=== PATIENT | male | born 1980 | race Caucasian/White ===

== ENCOUNTER → 2025-02-14 14:35 | Outpatient (REF) | payer BC, SELFPAY | LOC: DHSLP 14:35 | PROVIDERS: ATTENDING PHYSICIAN Internal Medicine; FAMILY PHYSICIAN Nurse Practitioner Adult Health | DX: G47.33 Obstructive sleep apnea (adult) (pediatric) (principal) | CPT/HCPCS: 95800 ==

== ENCOUNTER → 2025-06-22 09:19 | Outpatient (REF) | payer BC, SELFPAY | LOC: RAD 09:19 | PROVIDERS: ATTENDING PHYSICIAN Specialist; FAMILY PHYSICIAN Physician Assistant Medical | DX: R10.9 Unspecified abdominal pain (principal); R10.2 Pelvic and perineal pain | CPT/HCPCS: 74178; Q9967 ==

== ENCOUNTER 2025-10-08 08:09 | Emergency (ER) | payer BC, SELFPAY ==
[2025-10-08 08:12] VITALS: BP 125/89
[2025-10-08 09:36] VITALS: BP 127/83
[2025-10-08 09:44] LABS: Hematocrit 46.5 % (39.0-52.0); Hemoglobin 15.3 g/dL (13.0-18.0); Mean Corp Hgb Conc. 32.9 g/dL (33.0-37.0); Mean Corpuscular Volume 85.8 fL (80.0-94.0); Nucleated Red Blood Cells % 0 % (-); Platelet Count 229 10^3/uL (130-400); Red Cell Dist. Width 12.9 % (11.5-14.5)
--- NOTE | 2025-10-08 09:48 | ED.GENMED ---
History of Present Illness
General
Chief Complaint: Back Pain
Source: patient
Time Seen by Provider: 10/08/25 09:20
History of Present Illness
History of Present Illness:
45-year-old male with past medical history of hyperlipidemia presenting to the emergency department for evaluation of left-sided lower back pain that began over the last 2+ weeks, slightly worse today and accompanied with a sensation of urinary
urgency and frequency after drinking water, pain was worse last night when laying flat or also when putting direct pressure onto the left lower extremity. Patient states that he had the urinary issues going back the last few months, saw urology for
this and was started on a 5 mg of finasteride but states after 2 months with no resolution of the symptoms decided to stop taking the finasteride. He told me that he had an MRI here back in June but is unable to recall the results of this. He
denies any new traumas, focal weakness or numbness, fevers or infectious symptoms, any heavy lifting or bending, bowel or urinary incontinence, saddle anesthesia, history of substance abuse, known history of diabetes or any immunosuppressed state.
Past History
Past History
ED Past Medical History: Hypercholesterolemia
ED Past Surgical History: Other (Left inguinal hernia repair)
Social History
Tobacco: Non-smoker
Alcohol: None
Drug: None
Personal:
Living: with family
Review of Systems
Review of Systems
All Other Systems: ROS reviewed and negative except as documented in HPI and ROS
Phy Exam
Physical Exam
Physical Exam:
GENERAL: Alert , in no apparent distress
EYE: clear conjunctiva b/l
HEAD: NCAT
ENT: o/p clr, mmm.
CARDIAC: Regular rate and rhythm .
LUNGS: Clear breath sounds bilaterally, no acute respiratory distress, no wheezes/rales/rhonchi
ABDOMEN: Soft, without focal tenderness, no r/g, no cvat
BACK: No focal tenderness to palpation. Patient does have full range of motion, slight discomfort with forward flexion
NEUROLOGICAL: Alert and oriented, intact and equal patellar deep tendon reflexes bilateral, EHL intact bilateral
SKIN: Warm and dry, skin intact.
MUSCULOSKELETAL: No edema, well perfused.
PSYCH: Normal and appropriate interaction.
Scores
Heart Failure Risk
Heart Failure Risk Score: Not Applicable
Heart Score for Chest Pain Patients
STEMI patient?: Not applicable
Withdrawal Assessment of Alcohol
Withdrawal Assessment Completed?: Not applicable
Course
Orders/Labs/Results
Orders:
Orders
10/08/25 09:39
Complete Blood Count/With Diff Urgent
Comprehensive Metabolic Panel Urgent
Urinalysis Reflex To Culture Urgent
Date Specimen was Collected: 10/08/25
Time Specimen was Collected: 09:36
Urine Microscopic Reflex Cult Urgent
Abnormal Lab Results
10/08/25
09:39
WBC 4.7 L 10^3/uL
(4.8-10.8)
MCHC 32.9 L g/dL
(33.0-37.0)
Monocytes % 9.6 H %
(1.7-9.3)
Eosinophils % 7.2 H %
(0-6)
Urine Bacteria (Reflex) Few A
(Negative)
Urine Albumin (Reflex) 2+ A
(Neg - Trace)
10/08/25 09:39
10/08/25 09:39
Vital Signs
Initial and Last Documented VS:
Initial Vital Signs
Temp Pulse Resp BP Pulse Ox
98.1 F 84 18 125/89 96
10/08/25 08:12 10/08/25 08:12 10/08/25 08:12 10/08/25 08:12 10/08/25 08:12
Last Documented Vital Signs
Temp Pulse Resp BP Pulse Ox
98.1 F 67 16 127/87 94
10/08/25 08:12 10/08/25 09:42 10/08/25 10:06 10/08/25 10:00 10/08/25 10:45
MDM/Problems Addressed
Differential Diagnosis Includes:
New onset DM
Lumbar radiculopathy
Renal/Ureteral colic
Spinal stenosis
Disc herniation/Nerve Impingement
No risk factors for infectious etiology
No symptoms to suggest neurogenic claudication
MDM/Problems Addressed:
45-year-old male presenting the ER for multiple weeks of left-sided lower back pain, stating he has felt some urinary urgency shortly after drinking water, pain also radiating into the left leg. Part of his history does seem to be more of a
muscular etiology however the urinary symptoms seem to go against this. I reviewed patient's imaging records and it appears he had a CT scan and not an MRI done in June which did not show any acute pathologies, it was noted at that time for a
mildly enlarged prostate which is likely why he was started on the finasteride. No labs done at that time. Will check labs and urinalysis. Disposition pending.
*Pulse Oximetry
SaO2: 98
Oxygen Mode of Delivery: Room air
Patient hypoxic: no
*Critical Care Note
Total Time (30-74mins, 75-104mins- exclusive of procedures): Not Applicable
Data Reviewed
Review of Other/Old Records Reveals: Records and Radiology Studies
Patient Management
Escalation/DeEscalation of care consider admission/obs:
Patient's workup reassuring. Labs and urine without any concerning findings. I do suspect that patient's urinary issues are likely a secondary concern to his current back pain. Will attempt treatment with prednisone taper and naproxen,
recommended close follow-up with primary care provider. Aware of return precautions to the ER.
ED Attending Note
-
Portions of this chart may have been created with voice recognition software.� Occasional wrong word or��sound alike� substitutions may have occurred due to the inherent limitations of voice recognition software.
Discharge Plan
Departure
Patient Disposition: Home (Routine Discharge)
Date of Disposition: 10/08/25
Time of Disposition: 10:50
Patient with high blood pressure during this ER visit?: No
Discharge Problem:
Back pain
Instructions: Low Back Pain (DC)
Prescriptions:
New
prednisone 10 mg Tablet
See Rx Instructions .ROUTE .COMPLEX Qty: 30 0RF
Rx Instructions:
Take By Mouth:
40 mg daily x3 days, 30 mg daily x3 days,
20 mg daily x3 days, 10 mg daily x3 days.
naproxen 500 mg tablet
500 mg PO BID 5 Days Qty: 10 0RF
Referrals:
Liyah Rodriguez PA-C [Family Provider, Family Practice]
Interventions
Interventions:
*Risk Screen - Suicide Last Done: 10/08/25 08:12
*General Assessment Last Done: 10/08/25 08:12
*Neglect/Abuse Screening Last Done: 10/08/25 08:12
*ED- Fall Risk Assessment Last Done: 10/08/25 09:42
*ED COVID-19 Vaccine History Last Done: 10/08/25 08:12
*ED Influenza Vaccine History Last Done: 10/08/25 08:12
*Nursing Disposition Last Done: 10/08/25 11:01
ED-Musculoskeletal Assessment Last Done: 10/08/25 09:43
Discharge Date and Time
Discharge Date/Time: 10/08/25 11:08
Print Language: WELSH
[2025-10-08 09:57] LABS: ALT (SGPT) 44 U/L (0-50); AST (SGOT) 28 U/L (17-59); Albumin 4.4 g/dl (3.5-5.0); Alkaline Phosphatase 92 U/L (38-126); Blood Urea Nitrogen 11 mg/dl (9-20); Calcium 8.8 mg/dl (8.4-10.2); Carbon Dioxide 28 mmol/L (22-30); Chloride 104 mmol/L (98-107); Glucose 99 mg/dl (70-99); Potassium 4.2 mmol/L (3.5-5.1); Sodium 135 mmol/L (135-145); Total Protein 7.0 g/dl (6.3-8.2); eGFR > 60.00
[2025-10-08 10:00] VITALS: BP 127/87
[2025-10-08 10:07] LABS: Urine Character Clear (Clear)
[2025-10-08 10:30] LABS: Urine Squamous Cell 0-2 /LPF (Few)
[2025-10-08 10:31] LABS: Urine Red Blood Cell 0-2 /HPF (0-2); Urine White Cell 0-2 /HPF (0-5)
== END 2025-10-08 11:08 | disposition home or self-care (01) ==
LOC: EMR 08:09
PROVIDERS: Physician Assistant Medical; EMERGENCY PHYSICIAN Emergency Medicine; FAMILY PHYSICIAN Physician Assistant Medical
DX: M54.50 Low back pain, unspecified (principal); E78.00 Pure hypercholesterolemia, unspecified
CPT/HCPCS: 99283; 80053; 81003; 81015; 85025

== ENCOUNTER → 2025-10-12 15:35 | Outpatient (REF) | payer BC, SELFPAY | LOC: REG 15:35 | PROVIDERS: ATTENDING PHYSICIAN Physician Assistant Medical | DX: M54.42 Lumbago with sciatica, left side (principal) | CPT/HCPCS: 72110 ==